=== PATIENT | female | born 1995 | race American Indian/Alaskan Native ===

== ENCOUNTER → 2018-12-21 | Outpatient (CLI) | payer OTHER ==
[2018-12-21 15:00] LABS: PLATELET COUNT 165 x10^3mcL (130-400)
[2018-12-21 15:05] LABS: CALCIUM 9.6 mg/dL (8.5-10.1); CARBON DIOXIDE 27.8 mmol/L (21-32); CHLORIDE SERUM 107 mmol/L (98-107); CREATININE SERUM 0.6 mg/dL (0.6-1.0); GFR1 > 60 mL/min; GLUCOSE SERUM 88 mg/dL (74-106); POTASSIUM SERUM 3.7 mmol/L (3.5-5.1); SODIUM SERUM 143 mmol/L (136-145)
[2018-12-21 15:08] LABS: RED CELL DISTRIBUTION WIDTH 15.3 % (11.5-14.5)
[2018-12-21 15:13] LABS: ALBUMIN 3.9 g/dL (3.4-5.0); ALKALINE PHOSPHATASE 62 U/L (46-116); ALT/SGPT 18 U/L (14-59); AST/SGOT 13 U/L (15-37); BILIRUBIN DIRECT 0.12 mg/dL (0.0-0.2); BILIRUBIN TOTAL 0.45 mg/dL (0.20-1.00); CHOLESTEROL 167 mg/dL (<200); TOTAL PROTEIN, SERUM 7.8 g/dL (6.4-8.2); TRIGLYCERIDES 95 mg/dL (<150)
[2018-12-21 15:15] LABS: CHOLESTEROL/HDL RATIO 2.5; HDL CHOLESTEROL 66 mg/dL (40-60)
[2018-12-21 15:26] LABS: BAND NEUTROPHIL 0 % (0-10); BASOPHIL 0 % (0-2); MONOCYTE 3 % (0-7); SEGMENTED NEUTROPHILS 37 % (37-75); rbc morphology (normal/abnorm) NORMAL (NORMAL)
== END | disposition home or self-care (01) ==
LOC: LB 14:22
PROVIDERS: Internal Medicine
DX: Z00.00 Encounter for general adult medical examination without abnormal findings (principal)

== ENCOUNTER → 2019-01-29 | Outpatient (CLI) | payer OTHER | END | disposition home or self-care (01) | LOC: MA 08:42 → US 08:42 → MA 09:00 | PROC: BH40ZZZ Ultrasonography of Right Breast (ICD-10-PCS; principal; 2019-01-29) | DX: N63.0 Unspecified lump in unspecified breast (principal) | CPT/HCPCS: 76641 ==

== ENCOUNTER → 2019-02-27 | Outpatient (CLI) | payer OTHER | END | disposition home or self-care (01) | LOC: RD 13:41 | DX: M54.12 Radiculopathy, cervical region (principal) ==

== ENCOUNTER → 2019-05-28 | Outpatient (CLI) | payer OTHER | END | disposition home or self-care (01) | LOC: US 09:07 | PROC: BW40ZZZ Ultrasonography of Abdomen (ICD-10-PCS; principal; 2019-05-28) | DX: R10.9 Unspecified abdominal pain (principal) ==

== ENCOUNTER → 2020-07-17 | Outpatient (CLI) | payer OTHER | END | disposition home or self-care (01) | LOC: RD 13:09 | PROVIDERS: ATTEND Internal Medicine | DX: J18.9 Pneumonia, unspecified organism (principal) ==

== ENCOUNTER → 2020-09-18 | Outpatient (CLI) | payer OTHER ==
[2020-09-18 12:54] LABS: ALBUMIN 3.7 g/dL (3.4-5.0); ALKALINE PHOSPHATASE 73 U/L (46-116); ALT/SGPT 21 U/L (14-59); AST/SGOT 16 U/L (15-37); BILIRUBIN DIRECT 0.08 mg/dL (0.0-0.2); BILIRUBIN TOTAL 0.3 mg/dL (0.20-1.00); CHLORIDE SERUM 102 mmol/L (98-107); CHOLESTEROL 150 mg/dL (<200); CREATININE SERUM 0.5 mg/dL (0.6-1.0); FREE T4 0.86 ng/dL (0.76-1.46); GFR1 > 60 mL/min; GLUCOSE SERUM 90 mg/dL (74-106); POTASSIUM SERUM 3.8 mmol/L (3.5-5.1); SODIUM SERUM 137 mmol/L (136-145); TOTAL PROTEIN, SERUM 7.6 g/dL (6.4-8.2); TRIGLYCERIDES 70 mg/dL (<150)
[2020-09-18 12:56] LABS: CHOLESTEROL/HDL RATIO 2.1; HDL CHOLESTEROL 70 mg/dL (40-60)
[2020-09-18 12:58] LABS: BASOPHIL % 0.6 % (0.2-1.3); PLATELET COUNT 168 x10^3mcL (179-408); RED CELL DISTRIBUTION WIDTH 15.7 % (12.3-17.7)
[2020-09-18 13:22] LABS: UA SPECIFIC GRAVITY 1.015 (1.005-1.035); microscopic required? YES; urine erythrocyte NEGATIVE (NEGATIVE)
== END | disposition home or self-care (01) ==
LOC: LB 12:09
PROVIDERS: ATTEND Internal Medicine
PROC: BW4GZZZ Ultrasonography of Pelvic Region (ICD-10-PCS; principal; 2020-09-18)
DX: Z00.00 Encounter for general adult medical examination without abnormal findings (principal); R10.2 Pelvic and perineal pain
CPT/HCPCS: 84439